=== PATIENT | female | born 1990 | race Caucasian/White ===

== ENCOUNTER 2017-03-23 18:52 | Emergency (ER) | payer SELFPAY ==
[~2017-03-23] VITALS: Ht 167.6 cm; Wt 110.0 kg
[2017-03-23 20:19] VITALS: BP 114/67
[2017-03-23] MEDS ORDERED: LORazepam 2 MG TABLET PO ONE (20:30)
== END 2017-03-23 20:50 | disposition home or self-care (01) ==
LOC: EMS 18:56
DX: F41.9 Anxiety disorder, unspecified (principal); R07.89 Other chest pain
CPT/HCPCS: 93005; 99285